=== PATIENT | female | born 1995 | race Caucasian/White ===

== ENCOUNTER 2016-10-15 15:42 | Emergency (ER) | payer BC ==
[~2016-10-15] VITALS: Ht 167.6 cm; Wt 61.2 kg
[~2016-10-15 15:42] MED LIST: BCPILLS PO; FLUT0.0529 NAE; MONT1TAB3 PO; MULT-506 PO; VNTHFA/IN INH
[2016-10-15 15:57] VITALS: TEMP 36.6; Ht 167.6 cm; Wt 61.2 kg
[2016-10-15] MEDS ORDERED: SODIUM CHLORIDE 0.9% 1000ML 1,000 ML IV STA (16:02)
[2016-10-15 16:29] LABS: BASO % 0.5 %; BASO ABS # 0.07 K/uL (0-0.2); COMPLETE YES; EOS % 2.3 %; HEMATOCRIT 37.9 % (37-47); IG% 0.4 %; LYMPH % 18.3 %; LYMPH ABS # 2.49 K/uL (1.2-3.4); MEAN CELL VOLUME 91.1 fL (80-100); MEAN PLATELET VOLUME 9.3 fL (7.4-10.4); MONO % 11.3 %; NEUT % 67.2 %; PLATELET COUNT 316 K/uL (130-400); RED BLOOD COUNT 4.16 M/uL (4.2-5.4); WHITE BLOOD COUNT 13.63 K/uL (4.8-10.8)
[2016-10-15] MEDS ORDERED: ALBU18002 INH (16:36)
[2016-10-15] MEDS ORDERED: AMOX875T PO (16:36)
[2016-10-15] MEDS ORDERED: CITA10TA4 PO (16:36)
--- NOTE | 2016-10-15 16:45 | EMERGENCY ROOM VISIT NOTE ---
History Report prepared by Fazal: Dejah Bah Under the Supervision of: Dr. Tiffanie Dinero M.D. First contact with patient: 15:48 Chief Complaint: SYNCOPE Stated Complaint: SYNCOPE History of Present Illness The patient is a 21 year old female who presents to the Emergency Room with complaints of a sudden episode of syncope that occurred [employer]. The patient was at [facility] for a seven day follow-up due to not feeling well since being started on an antibiotic and prednisone. The patient was walking back from receiving an x-ray when she experienced the syncopal event. She states that she experienced lightheadedness prior to LOC. She also states that she experienced urinary incontinence when she was unconscious. The patient's friend states that they called her because the patient was not very responsive to questioning when she became conscious again. The patient denies any history of seizures. The patient states that she ate a decent amount today. She states that she was diagnosed with a sinus infection one week ago at [facility]. At that time, she was experiencing headaches, fevers, chills, sinus congestion, sore throat, generalized body aches, and fatigue. The patient was feeling well until she finished the course of prednisone 2 days ago. She states that all of her symptoms came back besides the fevers so she went back to [facility] because they wanted to retest her for mono and do a chest x-ray. The patient states that she was never tested for the flu and that she received her flu vaccination this year. She states that she is also experiencing shortness of breath due to the congestion, but denies any chest pain. She also denies abdominal pain, nausea, vomiting, and diarrhea. She adds that she used to experience syncope secondary to anemia when she was younger due to Von Willebrand disease. The patient denies any recent hematochezia and states that she is not experiencing her menstrual period currently. The patient is on control pills, but she is unsure of what type. 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 A total of 10 systems reviewed and were otherwise negative. Past Medical & Surgical Medical Problems: (1) Von Willebrand disease, type I Family History FH: heart disease Hypertension Social History Smoking Status: Never Smoker Alcohol Use: none Drug Use: none Marital Status: single Housing Status: lives with roommate Occupation Status: unemployed, [employer] student Current/Historical Medications Scheduled Amoxicillin & Pot Clavulanate (Augmentin 875-125 mg), 1 TAB PO BID Control Pills ( Control Pills), 1 TAB PO DAILY Citalopram Hydrobromide (Citalopram Hydrobromide), 10 MG PO DAILY Scheduled PRN Albuterol Sulfate (Proair Respiclick), 2 PUFFS INH Q4H PRN for Cough/SOB Allergies Coded Allergies: Sulfa Drugs (Verified Allergy, Severe, rash, 09/02/13) Chocolate (Verified Allergy, Intermediate, Nausea/Vomiting, 10/15/16) Cefprozil (Verified Allergy, Unknown, unknown, 10/07/13) Physical Exam Vital Signs Date Time Temp Pulse Resp B/P Pulse Ox O2 Delivery O2 Flow Rate FiO2 10/15/16 20:20 76 16 97 10/15/16 19:33 78 16 125/78 97 Room Air 10/15/16 17:54 79 16 114/76 100 Room Air 10/15/16 16:48 72 19 114/69 93 Room Air 83 114/74 90 114/71 10/15/16 16:14 82 10/15/16 15:57 36.6 66 16 120/78 100 Room Air Physical Exam Vital signs reviewed. General: Well-appearing young female, in no significant distress. HEENT: No scleral icterus, PERRLA, neck supple. Atraumatic. Cardiovascular: Regular rate and rhythm, no extra sounds. Pulmonary: Clear to auscultation bilaterally, normal work of breathing. Abdomen: Soft, nontender, nondistended, positive bowel sounds. Musculoskeletal: Atraumatic, no peripheral edema. Neurologic: Patient awake alert and oriented x 3, full strength in all 4 extremities. Cranial nerves 2 through 12 grossly intact. Skin: Warm, dry, no rash Medical Decision & Procedures ER Provider Diagnostic Interpretation: X-ray results as stated below per interpretation by me and the radiologist: CHEST 2 VIEWS ROUTINE IMPRESSION: No acute cardiopulmonary findings. Electronically signed by: Juan Miguel aCsas M.D. 10/15/2016 5:38 PM Dictated Date/Time: 10/15/2016 5:37 PM Laboratory Results 10/15/16 16:15 Red Blood Count 4.16, Mean Corpuscular Volume 91.1, Mean Corpuscular Hemoglobin 31.0, Mean Corpuscular Hemoglobin Concent 34.0, Mean Platelet Volume 9.3, Neutrophils (%) (Auto) 67.2, Lymphocytes (%) (Auto) 18.3, Monocytes (%) (Auto) 11.3, Eosinophils (%) (Auto) 2.3, Basophils (%) (Auto) 0.5, Neutrophils # (Auto ) 9.16, Lymphocytes # (Auto) 2.49, Monocytes # (Auto) 1.54, Eosinophils # (Auto ) 0.32, Basophils # (Auto) 0.07 10/15/16 16:15 Test 10/15/16 16:15 10/15/16 16:23 10/15/16 16:25 10/15/16 18:30 White Blood Count 13.63 K/uL (4.8-10.8) Red Blood Count 4.16 M/uL (4.2-5.4) Hemoglobin 12.9 g/dL (12.0-16.0) Hematocrit 37.9 % (37-47) Mean Corpuscular Volume 91.1 fL (80-100) Mean Corpuscular Hemoglobin 31.0 pg (25-34) Mean Corpuscular Hemoglobin Concent 34.0 g/dl (32-36) Platelet Count 316 K/uL (130-400) Mean Platelet Volume 9.3 fL (7.4-10.4) Neutrophils (%) (Auto) 67.2 % Lymphocytes (%) (Auto) 18.3 % Monocytes (%) (Auto) 11.3 % Eosinophils (%) (Auto) 2.3 % Basophils (%) (Auto) 0.5 % Neutrophils # (Auto) 9.16 K/uL (1.4-6.5) Lymphocytes # (Auto) 2.49 K/uL (1.2-3.4) Monocytes # (Auto) 1.54 K/uL (0.11-0.59) Eosinophils # (Auto) 0.32 K/uL (0-0.5) Basophils # (Auto) 0.07 K/uL (0-0.2) RDW Standard Deviation 41.2 fL (36.4-46.3) RDW Coefficient of Variation 12.5 % (11.5-14.5) Immature Granulocyte % (Auto) 0.4 % Immature Granulocyte # (Auto) 0.05 K/uL (0.00-0.02) Anion Gap 8.0 mmol/L (3-11) Est Creatinine Clear Calc Drug Dose 96.0 ml/min Estimated GFR () 111.1 Estimated GFR (Non- 95.9 BUN/Creatinine Ratio 14.0 (10-20) Calcium Level 8.9 mg/dl (8.5-10.1) Magnesium Level 2.2 mg/dl (1.8-2.4) Total Bilirubin 0.4 mg/dl (0.2-1) Direct Bilirubin < 0.1 mg/dl (0-0.2) Aspartate Amino Transf (AST/SGOT) 39 U/L (15-37) Alanine Aminotransferase (ALT/SGPT) 174 U/L (12-78) Alkaline Phosphatase 79 U/L (45-117) Total Creatine Kinase 90 U/L (26-192) Creatine Kinase MB 1.0 ng/ml (0.5-3.6) Creatine Kinase MB Ratio 1.1 (0-3.0) Total Protein 7.6 gm/dl (6.4-8.2) Albumin 3.9 gm/dl (3.4-5.0) Monoscreen NEG (NEG) Bedside D-Dimer 239 ng/mlFEU (0-450) Bedside Troponin I 0.000 ng/ml (0-0.045) Influenza Type A (RT-PCR) Neg for Influ A (NEG) Influenza Type A Antigen Neg for Influ A (NEG) Influenza Type B Antigen Neg for Influ B (NEG) Influenza Type B (RT-PCR) Neg for Influ B (NEG) Urine Color YELLOW Urine Appearance CLEAR (CLEAR) Urine pH 7.0 (4.5-7.5) Urine Specific Fields 1.015 (1.000-1.030) Urine Protein NEG (NEG) Urine Glucose (UA) NEG (NEG) Urine Ketones NEG (NEG) Urine Occult Blood NEG (NEG) Urine Nitrite NEG (NEG) Urine Bilirubin NEG (NEG) Urine Urobilinogen NEG (NEG) Urine Leukocyte Esterase NEG (NEG) Urine Test NEG (NEG) Laboratory results per my review. Medications Administered Medications (Trade) Dose Ordered Sig/Deya Route Start Time Stop Time Status Last Admin Dose Admin Sodium Chloride (Nss 1000ml) 1,000 ml @ 999 mls/hr Q1H1M STAT IV 10/15/16 16:02 10/15/16 17:02 DC 10/15/16 16:55 999 MLS/HR ECG Indication: syncope Rate (beats per minute): 74 Rhythm: sinus rhythm Findings: no acute ischemic change, no ectopy ED Course 1602: Ordered Sodium Chloride 1000 ml @ 999 mls/hr IV 1605: Past medical records reviewed. The patient was evaluated in room A3. A complete history and physical examination was performed. 194: Upon reevaluation, the patient appeared to have improvement of her symptoms. I discussed findings with her. She verbalized agreement of the treatment plan. She was discharged home. Medical Decision Differentials include vasovagal event, infection, hypoglycemia, electrolyte abnormalities, cardiac sources, intracerebral event, toxicologic, neurologic, as well as others were entertained. This patient was evaluated and appeared to be in no significant distress. Physical examination is fairly unrevealing. The patient has been suffering from a viral type illness. Laboratory work is negative for mono and influenza. Chest x-ray is clear. EKG reveals a normal sinus rhythm without ectopy or ischemia. Patient's d-dimer is normal. Syncopal episode today is likely a vasovagal reaction. I do not suspect the patient had a cardiac arrhythmia. Monospot is negative, liver enzymes are mildly elevated. Patient will follow- up with [facility] this week for reevaluation and return to the ER for worsening of symptoms or any medical concerns. Impression Primary Impression: Syncope Additional Impression: Transaminitis Scribe Attestation The scribe's documentation has been prepared under my direction and personally reviewed by me in its entirety. I confirm that the note above accurately reflects all work, treatment, procedures, and medical decision making performed by me. Departure Information Dispostion Home / Self-Care Referrals [facility] (PCP) Forms HOME CARE DOCUMENTATION FORM, IMPORTANT VISIT INFORMATION Patient Instructions My [facility] Additional Instructions Diagnosis: Syncope Drink plenty of clear fluids. Continue Tylenol 650 mg every 6 hours and ibuprofen 600 mg every 6 hours as needed for pain or fever. Follow-up with your physician this week for reevaluation. Return to the ER for worsening of symptoms or any medical concerns. Problem Qualifiers Primary Impression: Syncope Syncope type: vasovagal syncope Qualified Codes: R55 - Syncope and collapse
[2016-10-15 16:47] LABS: ALT/SGPT 174 U/L (12-78); BLOOD UREA NITROGEN 12 mg/dl (7-18); CALCIUM 8.9 mg/dl (8.5-10.1); CARBON DIOXIDE 29 mmol/L (21-32); CHLORIDE 103 mmol/L (98-107); CREATININE 0.86 mg/dl (0.60-1.20); GLUCOSE 75 mg/dl (70-99); MAGNESIUM 2.2 mg/dl (1.8-2.4); POTASSIUM 4.2 mmol/L (3.5-5.1); SODIUM 140 mmol/L (136-145)
[2016-10-15 16:51] LABS: ALKALINE PHOSPHATASE 79 U/L (45-117); AST/SGOT 39 U/L (15-37); CKMB/CK RATIO 1.1 (0-3.0)
--- NOTE | 2016-10-15 17:39 | DIAGNOSTIC IMAGING REPORT ---
CHEST 2 VIEWS ROUTINE CLINICAL HISTORY: Syncope. COMPARISON STUDY: Chest radiograph October 07, 2013. FINDINGS: Lung volumes are normal. Lungs are clear. Cardiac size is normal. Mediastinal contours are normal. Pulmonary vascularity is normal. There is no pneumothorax or pleural effusion. IMPRESSION: No acute cardiopulmonary findings. Electronically signed by: Juan Miguel Casas M.D. 10/15/2016 5:38 PM Dictated Date/Time: 10/15/2016 5:37 PM
[2016-10-15 18:59] LABS: URINE APPEARANCE CLEAR (CLEAR); URINE BILIRUBIN NEG (NEG); URINE COLOR YELLOW; URINE NITRITE NEG (NEG); URINE SPECIFIC GRAVITY 1.015 (1.000-1.030); UROBILINOGEN NEG (NEG); ZZUR CULT IF INDIC CLEAN CATCH NO
[2016-10-15 19:00] LABS: INFLUENZA A PCR Neg for Influ A (NEG); INFLUENZA B PCR Neg for Influ B (NEG)
[2016-10-15 19:10] LABS: MANUAL MICROSCOPIC REQUIRED? NO; REVIEW REQ? NO
[2016-10-15 19:33] VITALS: BP 125/78
[2016-10-15 20:20] VITALS: PULSE 76; O2SAT 97
[2016-10-17 16:34] LABS: EBV EARLY ANTIGEN AB <0.91 INDEX; EPSTEIN BARR VIR CAPSID IGG 1.67 INDEX
== END 2016-10-15 20:05 | disposition home or self-care (01) ==
LOC: EDBD 15:42 → C.EDA 15:47
DX: R55 Syncope and collapse (principal); R74.0 Nonspecific elevation of levels of transaminase and lactic acid dehydrogenase [LDH]; D68.0 Von Willebrand disease; Z82.49 Family history of ischemic heart disease and other diseases of the circulatory system; Z79.3 Long term (current) use of hormonal contraceptives

== ENCOUNTER 2017-10-22 19:21 | Emergency (ER) | payer BC ==
[~2017-10-22] VITALS: Ht 165.1 cm; Wt 66.1 kg
[~2017-10-22 19:21] MED LIST changes: +ALBU18002 INH; +AMOX875T PO; +CITA10TA4 PO; -FLUT0.0529 NAE; -MONT1TAB3 PO; -MULT-506 PO; -VNTHFA/IN INH
[2017-10-22 19:37] VITALS: Ht 165.1 cm; Wt 66.1 kg
[2017-10-22] MEDS ORDERED: ONDANSETRON INJ 2 MG/ML 2 ML VIAL IV STA (19:48)
[2017-10-22] MEDS ORDERED: SODIUM CHLORIDE 0.9% 1000ML 1,000 ML IV STA (19:48)
[2017-10-22] MEDS ORDERED: LORAZEPAM 2 MG/ML 1 ML VIAL IV STA (19:48)
[2017-10-22] MEDS ORDERED: KETOROLAC TROMETHAMINE 30 MG/ML VIAL IV STA (19:48)
[2017-10-22 20:30] LABS: BASO % 0.3 %; BASO ABS # 0.05 K/uL (0-0.2); EOS % 0.1 %; EOS ABS # 0.01 K/uL (0-0.5); HEMATOCRIT 40.9 % (37-47); HEMOGLOBIN 14.3 g/dL (12.0-16.0); IG# 0.04 K/uL (0.00-0.02); LYMPH % 5.6 %; LYMPH ABS # 0.88 K/uL (1.2-3.4); MEAN CELL VOLUME 91.9 fL (80-100); MEAN CORPUSCULAR HEMOGLOBIN 32.1 pg (25-34); MEAN PLATELET VOLUME 10.3 fL (7.4-10.4); MONO % 5.5 %; MONO ABS # 0.86 K/uL (0.11-0.59); NEUT % 88.2 %; NEUT ABS # 13.91 K/uL (1.4-6.5); PLATELET COUNT 314 K/uL (130-400); RED CELL DISTRIBUTION WIDTH CV 12.2 % (11.5-14.5); RED CELL DISTRIBUTION WIDTH SD 41.3 fL (36.4-46.3); WHITE BLOOD COUNT 15.75 K/uL (4.8-10.8)
[2017-10-22 21:10] LABS: ALBUMIN 4.1 gm/dl (3.4-5.0); CREATININE 0.94 mg/dl (0.60-1.20); POTASSIUM 3.7 mmol/L (3.5-5.1)
[2017-10-22 21:13] LABS: TOTAL PROTEIN 8.5 gm/dl (6.4-8.2)
--- NOTE | 2017-10-22 21:25 | DIAGNOSTIC IMAGING REPORT ---
ABDOMINAL ULTRASOUND, RIGHT UPPER QUADRANT HISTORY: Abdominal pain. COMPARISON: None. FINDINGS: Liver is sonographically normal. The gallbladder is normal. There are no gallstones. There is no biliary ductal dilatation. The pancreas is within normal limits. There is no right hydronephrosis. IMPRESSION: No significant abnormality identified within the right upper quadrant. Electronically signed by: Juan Miguel Casas M.D. 10/22/2017 9:23 PM Dictated Date/Time: 10/22/2017 9:23 PM
--- NOTE | 2017-10-22 21:51 | DIAGNOSTIC IMAGING REPORT ---
PA CHEST RADIOGRAPH AND UPRIGHT AND SUPINE AP RADIOGRAPHS OF THE ABDOMEN CLINICAL HISTORY: Epigastric abdominal pain. COMPARISON STUDY: Right upper quadrant ultrasound performed earlier today. FINDINGS: Lungs are clear. No pneumothorax or pleural effusion is noted. Cardiac size is normal. Mediastinal contours are normal. There is no evidence for pulmonary edema. There is no free air. The bowel gas pattern is normal. IMPRESSION: 1. No free air or evidence of bowel obstruction. 2. No acute cardiopulmonary findings. Electronically signed by: Juan Miguel Casas M.D. 10/22/2017 9:50 PM Dictated Date/Time: 10/22/2017 9:49 PM
[2017-10-22] MEDS ORDERED: CLB/200 PO (22:22)
[2017-10-22] MEDS ORDERED: OPTIRAY 320 IV PRN (22:30)
--- NOTE | 2017-10-22 22:59 | DIAGNOSTIC IMAGING REPORT ---
CT OF THE ABDOMEN AND PELVIS WITH CONTRAST CLINICAL HISTORY: Abdominal pain. Fatigue. COMPARISON STUDY: Abdominal series and right upper quadrant ultrasound performed earlier today. TECHNIQUE: Following IV administration of 92 mL of Optiray-320, axial images of the abdomen and pelvis were obtained from the lung bases to the proximal femurs. Images were reviewed in the axial, sagittal, and coronal planes. IV contrast was administered without complication. A dose lowering technique was utilized adhering to the principles of ALARA. CT DOSE: 287.59 mGy.cm FINDINGS: Lung bases are clear. The liver, spleen, adrenal glands, kidneys and pancreas are normal. There is no biliary or pancreatic ductal dilatation. There is no hydronephrosis or hydroureter. There is no evidence for a bowel obstruction. The appendix is not visualized. There is no right lower quadrant inflammation. No pneumatosis, free air or portal venous gas is present. There is no lymphadenopathy. No suspicious osseous lesions are present. IMPRESSION: 1. No acute process within the abdomen or pelvis. 2. Nonvisualization of the appendix but no right lower quadrant inflammation. Close clinical follow-up is recommended given nonvisualization of the appendix. Electronically signed by: Juan Miguel Casas M.D. 10/22/2017 10:57 PM Dictated Date/Time: 10/22/2017 10:51 PM
[2017-10-22 23:26] VITALS: BP 107/68; PULSE 74; TEMP 36.5; O2SAT 98
--- NOTE | 2017-10-23 00:19 | EMERGENCY ROOM VISIT NOTE ---
History Report prepared by Fazal: Mauricio Ryan Under the Supervision of: Dr. Sagar Lewis M.D. First contact with patient: 19:42 Chief Complaint: ABDOMINAL PAIN Stated Complaint: ABDOMEN/LOWER BACK PAIN,FATIGUE,DIZZINESS,VOMIT Nursing Triage Summary: here with severe abdominal pain, midline, now kind of all over and on both sides of her lower back History of Present Illness The patient is a 22 year old female who presents to the Emergency Room with complaints of constant and severe abdominal pain that began early this morning when it awoke her from sleep. The patient states that the pain was first concentrated around her bellybutton, and is now diffuse across her abdomen. There is also radiation of the pain into her lower back. She describes the pain as "sharp and clenching." The pain persisted as she traveled back to [place] from [place]. She did vomit once at 1600, 4 hours ago. She denies any blood in the vomit. The patient also denies coffee ground emesis, hematuria , blood in her stool, or melena. Her last menstrual cycle was 1 week ago. She is on birthcontrol. She is adamant at this time that she does not want narcotic medications. Source of History: patient Onset: This morning Position: abdomen Symptom Intensity: severe Quality: sharp (Clenching) Timing: constant Associated Symptoms: + LOC, + vomiting, No melena Review of Systems See HPI for pertinent positives and negatives. A total of ten systems were reviewed and were otherwise negative. Past Medical & Surgical Medical Problems: (1) Von Willebrand disease, type I Family History FH: heart disease Hypertension Social History Smoking Status: Never Smoker Alcohol Use: none Drug Use: none Marital Status: single Housing Status: lives with roommate Occupation Status: unemployed, [employer] student Current/Historical Medications Scheduled Control Pills ( Control Pills), 1 TAB PO DAILY Citalopram Hydrobromide (Citalopram Hydrobromide), 10 MG PO DAILY Scheduled PRN Celecoxib (CeleBREX), 200 MG PO DAILY PRN for Pain Allergies Coded Allergies: Sulfa Drugs (Verified Allergy, Severe, rash, 09/02/13) Chocolate (Verified Allergy, Intermediate, Nausea/Vomiting, 10/15/16) Doxycycline (Verified Allergy, Intermediate, Rash, 10/22/17) Cefprozil (Verified Allergy, Unknown, unknown, 10/07/13) Physical Exam Vital Signs Date Time Temp Pulse Resp B/P (MAP) Pulse Ox O2 Delivery O2 Flow Rate FiO2 10/22/17 23:26 36.5 74 20 107/68 98 Room Air 10/22/17 22:00 78 114/70 97 Room Air 10/22/17 20:30 68 126/78 98 Room Air 10/22/17 19:37 36.9 81 20 125/80 98 Room Air Physical Exam Physical Exam GENERAL: She is oriented to person, place, and time. She appears well- developed and well-nourished. She does not appear distressed. ____ HENT: Exam performed. Head: Normocephalic and atraumatic. Right Ear: External ear normal. No mastoid tenderness. Left Ear: External ear normal. No mastoid tenderness. Mouth/Throat: The oropharynx is clear and moist. No trismus in the jaw. No dental abscesses or uvula swelling. No oropharyngeal exudate or tonsillar abscesses. ____ EYES: Conjunctivae and EOM are normal. Pupils are equal, round, and reactive to light. Right eye exhibits no discharge. Left eye exhibits no discharge. No scleral icterus. ____ NECK: Normal range of motion. Neck supple. No JVD present. No spinous process tenderness present. No carotid bruit present. No rigidity. No tracheal deviation and normal range of motion present. No Brudzinski's sign and no Kernig 's sign noted. ____ CV: Normal rate, regular rhythm, normal heart sounds and intact distal pulses. There is no peripheral edema. Palpable radial pulses bue. ____ PULM/CHEST: Effort normal and breath sounds normal. No respiratory distress. No stridor. She has no wheezes. She has no rales. Chest Wall: She exhibits no tenderness. ____ ABD: The abdomen is soft. Bowel sounds are normal. She has no distension. No mass is present. There is pain on palpation of the epigastrium as well as the RUQ. There is no rebound, no guarding, no Howard's sign and no tenderness at McBurney's point. Rovsig negative MUSC/SKEL: Normal range of motion. There is no peripheral edema, tenderness or deformity. LYMPH: No cervical adenopathy. ____ NEURO: She is alert and oriented to person, place, and time. She has normal strength. No cranial nerve deficit or sensory deficit. Coordination and gait normal. GCS eye subscore is 4. GCS verbal subscore is 5. GCS motor subscore is 6. Cerebellar tests wnl. ____ SKIN: Skin is warm and dry. She is not diaphoretic. ____ PSYCH: She has a normal mood and affect. Her behavior is normal. Judgment and thought content normal. ____ Medical Decision & Procedures ER Provider Diagnostic Interpretation: Radiology results as stated below per my review and radiologist interpretation: CT OF THE ABDOMEN AND PELVIS WITH CONTRAST CLINICAL HISTORY: Abdominal pain. Fatigue. COMPARISON STUDY: Abdominal series and right upper quadrant ultrasound performed earlier today. TECHNIQUE: Following IV administration of 92 mL of Optiray-320, axial images of the abdomen and pelvis were obtained from the lung bases to the proximal femurs. Images were reviewed in the axial, sagittal, and coronal planes. IV contrast was administered without complication. A dose lowering technique was utilized adhering to the principles of ALARA. CT DOSE: 287.59 mGy.cm FINDINGS: Lung bases are clear. The liver, spleen, adrenal glands, kidneys and pancreas are normal. There is no biliary or pancreatic ductal dilatation. There is no hydronephrosis or hydroureter. There is no evidence for a bowel obstruction. The appendix is not visualized. There is no right lower quadrant inflammation. No pneumatosis, free air or portal venous gas is present. There is no lymphadenopathy. No suspicious osseous lesions are present. IMPRESSION: 1. No acute process within the abdomen or pelvis. 2. Nonvisualization of the appendix but no right lower quadrant inflammation. Close clinical follow-up is recommended given nonvisualization of the appendix. Electronically signed by: Juan Miguel Casas M.D. 10/22/2017 10:57 PM Dictated Date/Time: 10/22/2017 10:51 PM PA CHEST RADIOGRAPH AND UPRIGHT AND SUPINE AP RADIOGRAPHS OF THE ABDOMEN CLINICAL HISTORY: Epigastric abdominal pain. COMPARISON STUDY: Right upper quadrant ultrasound performed earlier today. FINDINGS: Lungs are clear. No pneumothorax or pleural effusion is noted. Cardiac size is normal. Mediastinal contours are normal. There is no evidence for pulmonary edema. There is no free air. The bowel gas pattern is normal. IMPRESSION: 1. No free air or evidence of bowel obstruction. 2. No acute cardiopulmonary findings. Electronically signed by: Juan Miguel Casas M.D. 10/22/2017 9:50 PM Dictated Date/Time: 10/22/2017 9:49 PM ABDOMINAL ULTRASOUND, RIGHT UPPER QUADRANT HISTORY: Abdominal pain. COMPARISON: None. FINDINGS: Liver is sonographically normal. The gallbladder is normal. There are no gallstones. There is no biliary ductal dilatation. The pancreas is within normal limits. There is no right hydronephrosis. IMPRESSION: No significant abnormality identified within the right upper quadrant. Electronically signed by: uJan Miguel Casas M.D. 10/22/2017 9:23 PM Dictated Date/Time: 10/22/2017 9:23 PM Laboratory Results 10/22/17 20:17 Red Blood Count 4.45, Mean Corpuscular Volume 91.9, Mean Corpuscular Hemoglobin 32.1, Mean Corpuscular Hemoglobin Concent 35.0, Mean Platelet Volume 10.3, Neutrophils (%) (Auto) 88.2, Lymphocytes (%) (Auto) 5.6, Monocytes (%) (Auto) 5.5, Eosinophils (%) (Auto) 0.1, Basophils (%) (Auto) 0.3, Neutrophils # (Auto) 13.91, Lymphocytes # (Auto) 0.88, Monocytes # (Auto) 0.86, Eosinophils # (Auto) 0.01, Basophils # (Auto) 0.05 10/22/17 20:17 Test 10/22/17 20:12 10/22/17 20:17 Lactic Acid Level 1.5 mmol/L (0.4-2.0) White Blood Count 15.75 K/uL (4.8-10.8) Red Blood Count 4.45 M/uL (4.2-5.4) Hemoglobin 14.3 g/dL (12.0-16.0) Hematocrit 40.9 % (37-47) Mean Corpuscular Volume 91.9 fL (80-100) Mean Corpuscular Hemoglobin 32.1 pg (25-34) Mean Corpuscular Hemoglobin Concent 35.0 g/dl (32-36) Platelet Count 314 K/uL (130-400) Mean Platelet Volume 10.3 fL (7.4-10.4) Neutrophils (%) (Auto) 88.2 % Lymphocytes (%) (Auto) 5.6 % Monocytes (%) (Auto) 5.5 % Eosinophils (%) (Auto) 0.1 % Basophils (%) (Auto) 0.3 % Neutrophils # (Auto) 13.91 K/uL (1.4-6.5) Lymphocytes # (Auto) 0.88 K/uL (1.2-3.4) Monocytes # (Auto) 0.86 K/uL (0.11-0.59) Eosinophils # (Auto) 0.01 K/uL (0-0.5) Basophils # (Auto) 0.05 K/uL (0-0.2) RDW Standard Deviation 41.3 fL (36.4-46.3) RDW Coefficient of Variation 12.2 % (11.5-14.5) Immature Granulocyte % (Auto) 0.3 % Immature Granulocyte # (Auto) 0.04 K/uL (0.00-0.02) Urine Color DK YELLOW Urine Appearance CLEAR (CLEAR) Urine pH 6.5 (4.5-7.5) Urine Specific [place] 1.028 (1.000-1.030) Urine Protein NEG (NEG) Urine Glucose (UA) NEG (NEG) Urine Ketones TRACE (NEG) Urine Occult Blood 2+ (NEG) Urine Nitrite NEG (NEG) Urine Bilirubin NEG (NEG) Urine Urobilinogen NEG (NEG) Urine Leukocyte Esterase TRACE (NEG) Urine WBC (Auto) 1-5 /hpf (0-5) Urine RBC (Auto) 10-30 /hpf (0-4) Urine Hyaline Casts (Auto) 1-5 /lpf (0-5) Urine Epithelial Cells (Auto) 10-20 /lpf (0-5) Urine Bacteria (Auto) NEG (NEG) Urine Test NEG (NEG) Anion Gap 7.0 mmol/L (3-11) Est Creatinine Clear Calc Drug Dose 83.8 ml/min Estimated GFR () 99.1 Estimated GFR (Non- 85.5 BUN/Creatinine Ratio 19.1 (10-20) Calcium Level 9.0 mg/dl (8.5-10.1) Total Bilirubin 0.5 mg/dl (0.2-1) Direct Bilirubin 0.2 mg/dl (0-0.2) Aspartate Amino Transf (AST/SGOT) 34 U/L (15-37) Alanine Aminotransferase (ALT/SGPT) 58 U/L (12-78) Alkaline Phosphatase 88 U/L (45-117) Total Protein 8.5 gm/dl (6.4-8.2) Albumin 4.1 gm/dl (3.4-5.0) Lipase 99 U/L (73-393) Laboratory results reviewed by me Medications Administered Medications (Trade) Dose Ordered Sig/Deya Route Start Time Stop Time Status Last Admin Dose Admin Sodium Chloride 1,000 ml @ 999 mls/hr Q1H1M STAT IV 10/22/17 19:48 10/22/17 20:48 DC 10/22/17 20:27 999 MLS/HR Ondansetron HCl (Zofran Inj) 4 mg NOW STAT IV 10/22/17 19:48 10/22/17 19:52 DC 10/22/17 20:28 4 MG Lorazepam (Ativan Inj) 0.5 mg NOW STAT IV 10/22/17 19:48 10/22/17 19:52 DC 10/22/17 20:29 0.5 MG Procedure BEDSIDE US PERFORMED Bedside FAST exam performed with ultrasound. Views were obtained in the hepatorenal subxyphoid splenorenal and suprapubic windows. No free fluid in the abdomen. No pericardial tamponade. ED Course 1943: The patient was evaluated in room C7. A complete history and physical exam was performed. 1947: Ordered Ativan 0.5 mg IV, Zofran 4 mg IV, Toradol 15 mg IV, Sodium Chloride 1000 mL @ 999 mL/hr IV. 1953: I performed a bedside ultra sound at this time. Bedside FAST exam performed with ultrasound. Views were obtained in the hepatorenal subxyphoid splenorenal and suprapubic windows. No free fluid in the abdomen. No pericardial tamponade. 2139: I updated the patient at this time. She continues to have pain in the epigastrium. The Ultra Sound was negative and abdominal x-ray series was reviewed by me and otherwise negative. I will obtain CT given abdominal pain a leukocytosis. 2323: I updated the patient. Her Vitals are stable, labs show leukocytosis at 15.7. CT of the abdomen shows no acute process, the appendix is not visualized and there is no inflammatory changes noted in the RLQ. On repeat abdominal examinations the epigastrium continues to be painful. There is no lower abdominal pain including the RLQ. Given the lack of pain in the RLQ and negative CT showing no signs of inflammation in the RLQ. Appendicitis is very unlikely. Patient reports no pelvic pain either, making ovarian cyst and ovarian torsion also extremely unlikely. She will follow up with her PCP and GI. DISCHARGE - Plan of care discussed with patient and questions answered. The patient was given both verbal and printed discharge instructions. The patient verbalized understanding and ability to comply. The patient is to seek outpatient follow up as noted in the discharge instructions. The patient verbalized understanding and ability to comply. The patient is discharged in stable condition. The patient was instructed to return for worsening symptoms. Medical Decision 2140: I updated the patient at this time. She continues to have pain in the epigastrium. The Ultra Sound was negative and abdominal x-ray series was reviewed by me and otherwise negative. I will obtain CT given abdominal pain a leukocytosis. 2324: I updated the patient. Her Vitals are stable, labs show leukocytosis at 15.7. CT of the abdomen shows no acute process, the appendix is not visualized and there is no inflammatory changes noted in the RLQ. On repeat abdominal examinations the epigastrium continues to be painful. There is no lower abdominal pain including the RLQ. Given the lack of pain in the RLQ and negative CT showing no signs of inflammation in the RLQ. Appendicitis is very unlikely. Patient reports no pelvic pain either, making ovarian cyst and ovarian torsion also extremely unlikely. She will follow up with her PCP and GI. DISCHARGE - Plan of care discussed with patient and questions answered. The patient was given both verbal and printed discharge instructions. The patient verbalized understanding and ability to comply. The patient is to seek outpatient follow up as noted in the discharge instructions. The patient verbalized understanding and ability to comply. The patient is discharged in stable condition. The patient was instructed to return for worsening symptoms. Medication Reconcilliation Current Medication List: was personally reviewed by me Blood Pressure Screening Patient's blood pressure: Normal blood pressure Impression Primary Impression: Abdominal pain Scribe Attestation The scribe's documentation has been prepared under my direction and personally reviewed by me in its entirety. I confirm that the note above accurately reflects all work, treatment, procedures, and medical decision making performed by me. The chart was completed utilizing [employer] Speech voice recognition software. Grammatical errors, random word insertions, pronoun errors, and incomplete sentences are an occasional consequence of this system due to software limitations, ambient noise, and hardware issues. Any formal questions or concerns about the content, text, or information contained within the body of this dictation should be directly addressed to the physician for clarification. Departure Information Dispostion Home / Self-Care Referrals [facility] (PCP) Forms HOME CARE DOCUMENTATION FORM, IMPORTANT VISIT INFORMATION Patient Instructions [facility] Additional Instructions Return to the emergency department if you develop fever greater than 100.4, increased abdominal pain, blood in her vomit, blood in her stool, vaginal bleeding, extreme pelvic pain, vaginal discharge, blood in your urine Problem Qualifiers Primary Impression: Abdominal pain Abdominal location: epigastric Qualified Codes: R10.13 - Epigastric pain
== END 2017-10-22 23:40 | disposition home or self-care (01) ==
LOC: C.EDB 19:22 → C.EDC 23:40
DX: R10.13 Epigastric pain (principal); R10.11 Right upper quadrant pain; D72.829 Elevated white blood cell count, unspecified; M54.5 Low back pain; R11.10 Vomiting, unspecified; Z79.3 Long term (current) use of hormonal contraceptives; Z88.2 Allergy status to sulfonamides; Z91.018 Allergy to other foods; Z88.1 Allergy status to other antibiotic agents; Z82.49 Family history of ischemic heart disease and other diseases of the circulatory system

== ENCOUNTER → 2017-11-19 | Outpatient (CLI) | payer BC ==
[~2017-11-19] MED LIST changes: -ALBU18002 INH; -AMOX875T PO; +CLB/200 PO
--- NOTE | 2017-11-19 07:50 | DIAGNOSTIC IMAGING REPORT ---
L LOWER EXT NONJOINT WITHOUT HISTORY: 22 years-old Female FOOT PAIN acute left foot pain with concern for possible stress fracture. The pain is most pronounced within the region of the first MTP joint COMPARISON: None available TECHNIQUE: Multiplanar multisequence MRI of the left foot was obtained without the use of IV contrast. FINDINGS: The large [id number] manager licensing localizer images demonstrate no gross abnormality. There is a skin marker placed along the dorsal aspect of the first MTP joint. Deep to this marker the first metatarsal and first proximal phalanx appear normal. There is no acute fracture, focal bone marrow edema, periostitis or evidence of stress fracture. There is trace fluid within the first MTP joint. Normal bone marrow signal within the hallux sesamoids. There is trace fluid within the first webspace, nicely seen on image 17 series 9 and also image 11 of series 8, possibly reflecting trace intermetacarpal bursitis. Trace fluid within the second and third web spaces is likely physiologic. No evidence of perineural fibrosis (Riggins neuroma). No adventitial bursitis. Plantar plates appear intact. Imaged flexor and extensor tendons appear unremarkable. Lisfranc ligament is identified and appears normal. Type II accessory navicular incidentally noted. IMPRESSION: 1. No focal bone marrow edema or evidence of acute stress fracture. 2. Trace fluid within the first webspace, possibly reflects trace intermetacarpal bursitis. Additionally, there is trace fluid within the first MTP joint which may be physiologic. 3. No evidence of acute tendon injury. The above report was generated using voice recognition software. It may contain grammatical, syntax or spelling errors. Electronically signed by: Harpreet Ayala M.D. 11/19/2017 7:49 AM Dictated Date/Time: 11/19/2017 7:40 AM
== END | disposition home or self-care (01) ==
LOC: C.MRIBC 06:47
PROVIDERS: ATTEND Orthopaedic Surgery
DX: M79.672 Pain in left foot (principal)